=== PATIENT | female | born 1955 | race Caucasian/White ===

== ENCOUNTER → 2024-05-27 06:29 | Day surgery (SDC) | payer MEDICARE, BC, SELFPAY ==
[2024-05-27 07:28] LABS: Glucose - Point of Care 103 mg/dl (70-99)
== END ==
LOC: GI 06:29
PROVIDERS: ATTENDING PHYSICIAN Internal Medicine
DX: Z12.11 Encounter for screening for malignant neoplasm of colon (principal); K57.30 Diverticulosis of large intestine without perforation or abscess without bleeding; D12.2 Benign neoplasm of ascending colon; D12.3 Benign neoplasm of transverse colon; Z86.010 Personal history of colon polyps
CPT/HCPCS: 45385; 45380; 88305; 82962

== ENCOUNTER → 2024-06-17 08:37 | Outpatient (REF) | payer MEDICARE, BC, SELFPAY | LOC: HWWDC 08:37 | PROVIDERS: ATTENDING PHYSICIAN Family Medicine | DX: Z12.31 Encounter for screening mammogram for malignant neoplasm of breast (principal) | CPT/HCPCS: 77063; 77067 ==

== ENCOUNTER → 2025-07-15 08:07 | Outpatient (REF) | payer MEDICARE, BC, SELFPAY | LOC: HWWDC 08:07 | PROVIDERS: ATTENDING PHYSICIAN Nurse Practitioner Adult Health; FAMILY PHYSICIAN Family Medicine | DX: Z12.31 Encounter for screening mammogram for malignant neoplasm of breast (principal) | CPT/HCPCS: 77063; 77067 ==